=== PATIENT | female | born 1965 | race African-American/Black ===

== ENCOUNTER 2019-08-04 18:40 | Emergency (ER) | payer MEDICAID ==
[~2019-08-04] VITALS: Ht 172.7 cm; Wt 81.6 kg
[~2019-08-04 18:40] MED LIST: AMIT PO; BECL0.07 INH; CARI-277 PO; HYDR-4833 PO; LAMO200T2 PO; LORA2TAB10 PO; MONT10TA23 PO; OMEP20CA74 PO
[2019-08-04] MEDS ORDERED: SODIUM CHLORIDE 0.9% 1,000 ML IV ONE (18:44)
[2019-08-04 19:15] VITALS: BP 113/89
[2019-08-04] MEDS ORDERED: KETOROLAC TROMETH 30 MG/ML 1ML VIAL IV ONE (19:30)
[2019-08-04] MEDS ORDERED: KETOROLAC TROMETH 60MG/2ML VIAL IM ONE (19:30)
[2019-08-04 19:32] LABS: Basophils # (auto) 0.2 10 ^3/uL (0-0.2); Eosinophils # (auto) 0.1 10 ^3/uL (0-0.8); Eosinophils % (auto) 0.5 % (0.0-7.0); Hematocrit 42.9 % (36.0-46.0); Lymphocytes # (auto) 5.8 10 ^3/uL (0.4-5.4); Lymphocytes % (auto) 28.7 % (10.0-50.0); Mean Corpuscular Hemoglobin 27.5 pg (28.0-32.0); Mean Corpuscular Hgb Conc. 32.6 g/dL (32.0-36.0); Mean Corpuscular Volume 84.4 fL (80.0-100.0); Monocytes # (auto) 1.4 10 ^3/uL (0-1.3); Monocytes % (auto) 7.1 % (0.0-12.0); Neutrophils # (auto) 12.7 10 ^3/uL (1.6-8.6); Neutrophils % (auto) 62.7 % (37.0-80.0); Nucleated Red Blood Cells % 0.1 %; Platelet Count (auto) 385 10^3/uL (140-450); Red Blood Cells 5.08 10^6/uL (4.0-5.20); Red Cell Distribution Width 15.6 % (11.8-14.3); White Blood Cell 20.3 10^3/uL (4.4-10.8)
[2019-08-04 19:48] LABS: Albumin 3.7 g/dL (3.4-5.0); Anion Gap 8 (5-15); Calcium 9.2 mg/dL (8.5-10.1); Carbon Dioxide 27 mmol/L (21-32); Chloride 101 mmol/L (98-107); Glucose 97 mg/dL (74-106); Lipase 102 U/L (73-393); Sodium 136 mmol/L (136-145)
[2019-08-04 19:52] LABS: Alanine Aminotransferase 45 U/L (13-56); Alkaline Phosphatase 106 U/L (45-117); Aspartate Aminotransferase 69 U/L (15-37); Bilirubin, Total 0.7 mg/dL (0.2-1.0); GFR African American 74 mL/min; GFR Non-African American 61 mL/min; Total Protein 8.4 g/dL (6.4-8.2)
[2019-08-04] MEDS ORDERED: cefTRIAXone 1GM/50ML D5W 50 ML IV ONE (20:00)
[2019-08-04] MEDS ORDERED: metroNIDAZOLE 500MG/100ML 100 ML IV ONE (20:00)
[2019-08-04 20:09] LABS: Blood Urea Nitrogen 13 mg/dL (7-18)
[2019-08-04 20:10] LABS: BUN/Creatinine Ratio 12.9
--- NOTE | 2019-08-05 09:34 | NUR ---
assessment Per consult will need a place for treatment. Consult came in after hours and patient discharged prior to assessment. Addendum: 08/05/19 at 0935 by Jeanine Arango Amended: Links added.
== END 2019-08-04 20:06 | disposition home or self-care (01) ==
LOC: ER 18:41
DX: F41.9 Anxiety disorder, unspecified (principal); K52.9 Noninfective gastroenteritis and colitis, unspecified; K59.00 Constipation, unspecified; E86.0 Dehydration; D72.829 Elevated white blood cell count, unspecified; J45.909 Unspecified asthma, uncomplicated; E07.9 Disorder of thyroid, unspecified; F17.210 Nicotine dependence, cigarettes, uncomplicated
CPT/HCPCS: 36415; 71045; 74176; 80053; 83690; 84484; 85025; 96361; 96374; 99285; J1885; J7030

== ENCOUNTER 2019-08-17 16:45 | Inpatient (IN) | payer MEDICAID ==
[~2019-08-17] VITALS: Ht 170.2 cm; Wt 30.8 kg
[2019-08-17 18:15] LABS: Urine Bacteria NONE SEEN /hpf (None Seen); Urine Blood TRACE /uL (Negative); Urine Hyaline Cast MOD /lpf (0 - 2); Urine Mucus FEW (None Seen); Urine WBC 366 /hpf (0 - 5)
[2019-08-17 18:18] LABS: Amphetamine Screen, Urine NEGATIVE (NEGATIVE); Barbiturate Scree,Urine NEGATIVE (NEGATIVE); Benzodiazephine Screen, Urine NEGATIVE (NEGATIVE); Cocaine Screen, Urine NEGATIVE (NEGATIVE); Phencyclidine Screen, Urine NEGATIVE (NEGATIVE)
[2019-08-17 18:23] LABS: Acetaminophen < 2.0 ug/mL (10-30); Alanine Aminotransferase 30 U/L (13-56); Albumin 3.8 g/dL (3.4-5.0); Anion Gap 3 (5-15); Aspartate Aminotransferase 21 U/L (15-37); BUN/Creatinine Ratio 10.3; Basophils # (auto) 0.1 10 ^3/uL (0-0.2); Basophils % (auto) 0.7 % (0.0-2.0); Blood Alcohol < 3.0 mg/dL (0-5); Blood Urea Nitrogen 6 mg/dL (7-18); Calcium 9.8 mg/dL (8.5-10.1); Carbon Dioxide 29 mmol/L (21-32); Chloride 102 mmol/L (98-107); Eosinophils # (auto) 0.1 10 ^3/uL (0-0.8); Eosinophils % (auto) 0.8 % (0.0-7.0); GFR African American 140 mL/min; GFR Non-African American 116 mL/min; Glucose 98 mg/dL (74-106); Hematocrit 47.7 % (36.0-46.0); Hemoglobin 15.5 g/dL (12.2-16.2); Lymphocytes # (auto) 4.3 10 ^3/uL (0.4-5.4); Lymphocytes % (auto) 26.5 % (10.0-50.0); Mean Corpuscular Hemoglobin 27.6 pg (28.0-32.0); Mean Corpuscular Hgb Conc. 32.6 g/dL (32.0-36.0); Mean Corpuscular Volume 84.6 fL (80.0-100.0); Monocytes # (auto) 0.7 10 ^3/uL (0-1.3); Monocytes % (auto) 4.6 % (0.0-12.0); Neutrophils # (auto) 10.9 10 ^3/uL (1.6-8.6); Neutrophils % (auto) 67.4 % (37.0-80.0); Nucleated Red Blood Cells % 0.1 %; Platelet Count (auto) 369 10^3/uL (140-450); Potassium 3.1 mmol/L (3.5-5.1); Red Blood Cells 5.64 10^6/uL (4.0-5.20); Red Cell Distribution Width 15.7 % (11.8-14.3); Salicylate 9.8 mg/dL (2.8-20.0); Sodium 134 mmol/L (136-145); White Blood Cell 16.1 10^3/uL (4.4-10.8)
[2019-08-17 18:26] LABS: Alkaline Phosphatase 111 U/L (45-117); Bilirubin, Total 0.3 mg/dL (0.2-1.0); Total Protein 9.2 g/dL (6.4-8.2)
[2019-08-17 18:26] LABS: Cannabinoid Screen, Urine POSITIVE (NEGATIVE); Opiate Scree,Urine NEGATIVE (NEGATIVE)
[2019-08-17 18:42] LABS: Alcohol, Urine < 3.0 mg/dL (0-5)
[2019-08-17] MEDS ORDERED: POTASSIUM CHL 20MEQ/100ML 100 ML IV ONE (18:45)
[2019-08-17] MEDS ORDERED: cefTRIAXone 1GM/50ML D5W 50 ML IV ONE (18:45)
[2019-08-17] MEDS ORDERED: ACETAMINOPHEN 500 MG TAB PO PRN (19:30)
[2019-08-17] MEDS ORDERED: NITROGLYCERIN 0.4 MG SL TAB SL PRN (19:30)
[2019-08-17] MEDS ORDERED: MORPHINE SULF INJ 2 MG/ML SYRINGE 1ML IV PRN (19:30)
[2019-08-17] MEDS ORDERED: ALBUTEROL SULF 2.5 MG/0.5ML(0.5%) NEB SOLN NEB PRN (19:30)
[2019-08-17] MEDS ORDERED: ONDANSETRON HCL 4 MG/2 ML VIAL IV PRN (19:30)
[2019-08-17] MEDS ORDERED: IPRATROPIUM BROM 0.5 MG/2.5ML INH SOL NEB PRN (19:30)
[2019-08-17] MEDS: SOD CHL 0.9%/ KCL 20MEQ 1,000 ML IV SCH ×2 (20:26→22:51)
[2019-08-17 21:33] VITALS: BP 140/89
[2019-08-18] VITALS: BP 145/76
[2019-08-18 05:58] LABS: Basophils # (auto) 0.1 10 ^3/uL (0-0.2); Basophils % (auto) 0.8 % (0.0-2.0); Eosinophils # (auto) 0.2 10 ^3/uL (0-0.8); Hematocrit 41.2 % (36.0-46.0); Hemoglobin 13.2 g/dL (12.2-16.2); Lymphocytes # (auto) 5.5 10 ^3/uL (0.4-5.4); Lymphocytes % (auto) 44.7 % (10.0-50.0); Mean Corpuscular Hemoglobin 27.4 pg (28.0-32.0); Mean Corpuscular Hgb Conc. 32.1 g/dL (32.0-36.0); Mean Corpuscular Volume 85.5 fL (80.0-100.0); Monocytes # (auto) 0.9 10 ^3/uL (0-1.3); Monocytes % (auto) 7.7 % (0.0-12.0); Neutrophils # (auto) 5.5 10 ^3/uL (1.6-8.6); Neutrophils % (auto) 44.8 % (37.0-80.0); Nucleated Red Blood Cells % 0.2 %; Platelet Count (auto) 303 10^3/uL (140-450); Red Blood Cells 4.81 10^6/uL (4.0-5.20); Red Cell Distribution Width 15.6 % (11.8-14.3); White Blood Cell 12.2 10^3/uL (4.4-10.8)
[2019-08-18 06:17] LABS: Calcium 8.7 mg/dL (8.5-10.1); Potassium 3.6 mmol/L (3.5-5.1)
[2019-08-18 06:21] LABS: BUN/Creatinine Ratio 21.7
[2019-08-18 09:00] VITALS: BP 152/96
[2019-08-18] MEDS ORDERED: cefTRIAXone 1GM/50ML D5W 50 ML IV SCH (09:00)
[2019-08-18] MEDS ORDERED: FAMOTIDINE 20 MG TAB PO SCH (10:00)
[2019-08-18 13:00] VITALS: BP 151/80
[2019-08-18 15:12] VITALS: BP 145/76
[2019-08-18] MEDS: SOD CHL 0.9%/ KCL 20MEQ 1,000 ML IV SCH (15:30)
== END 2019-08-18 16:00 | disposition home or self-care (01) | DRG 817 ==
LOC: ER 16:45 → EDBD 16:45 → TELE 16:46 → TELE-CENTR 22:05
PROVIDERS: ADMIT Nurse Practitioner Acute Care; ATTEND Internal Medicine
DX: T42.8X2A Poisoning by antiparkinsonism drugs and other central muscle-tone depressants, intentional self-harm, initial encounter (principal); G92 Toxic encephalopathy; F11.20 Opioid dependence, uncomplicated; F20.9 Schizophrenia, unspecified; I11.0 Hypertensive heart disease with heart failure; I50.9 Heart failure, unspecified; T42.6X2A Poisoning by other antiepileptic and sedative-hypnotic drugs, intentional self-harm, initial encounter; N30.00 Acute cystitis without hematuria; E87.6 Hypokalemia; J44.9 Chronic obstructive pulmonary disease, unspecified; F17.210 Nicotine dependence, cigarettes, uncomplicated; F12.90 Cannabis use, unspecified, uncomplicated; D72.829 Elevated white blood cell count, unspecified; F31.9 Bipolar disorder, unspecified; Z88.1 Allergy status to other antibiotic agents; Z79.899 Other long term (current) drug therapy; Z79.51 Long term (current) use of inhaled steroids; Z83.3 Family history of diabetes mellitus; Y92.89 Other specified places as the place of occurrence of the external cause
CPT/HCPCS: 36415; 80048; 80053; 80307; 80320; 80329; 81001; 83735; 85025; 87086; 93005; G0378; J0696

== ENCOUNTER 2019-12-05 02:00 | Emergency (ER) | payer MEDICAID ==
[~2019-12-05] VITALS: Ht 170.2 cm; Wt 45.4 kg
[~2019-12-05 02:00] MED LIST changes: -LORA2TAB10 PO; +LORA2TAB12 PO
[2019-12-05 03:26] LABS: Basophils # (auto) 0.1 10 ^3/uL (0-0.2); Basophils % (auto) 0.6 % (0.0-2.0); Eosinophils # (auto) 0.1 10 ^3/uL (0-0.8); Eosinophils % (auto) 0.9 % (0.0-7.0); Hematocrit 40.8 % (36.0-46.0); Hemoglobin 13.5 g/dL (12.2-16.2); Lymphocytes # (auto) 2.8 10 ^3/uL (0.4-5.4); Lymphocytes % (auto) 27.4 % (10.0-50.0); Mean Corpuscular Hemoglobin 27.5 pg (28.0-32.0); Mean Corpuscular Hgb Conc. 33.1 g/dL (32.0-36.0); Mean Corpuscular Volume 83.1 fL (80.0-100.0); Monocytes # (auto) 0.8 10 ^3/uL (0-1.3); Monocytes % (auto) 7.9 % (0.0-12.0); Neutrophils # (auto) 6.5 10 ^3/uL (1.6-8.6); Neutrophils % (auto) 63.2 % (37.0-80.0); Platelet Count (auto) 397 10^3/uL (140-450); Red Blood Cells 4.91 10^6/uL (4.0-5.20); Red Cell Distribution Width 14.5 % (11.8-14.3); White Blood Cell 10.2 10^3/uL (4.4-10.8)
[2019-12-05 03:29] LABS: Urine Bacteria NONE SEEN /hpf (None Seen); Urine Blood Negative /uL (Negative); Urine Specific Gravity 1.003 (1.001-1.035); Urine WBC 2 /hpf (0 - 5)
[2019-12-05 03:42] LABS: Albumin 3.6 g/dL (3.4-5.0); Anion Gap 5 (5-15); Blood Urea Nitrogen 5 mg/dL (7-18); Calcium 9.1 mg/dL (8.5-10.1); Carbon Dioxide 28 mmol/L (21-32); Chloride 102 mmol/L (98-107); Glucose 101 mg/dL (74-106); Potassium 3.3 mmol/L (3.5-5.1); Sodium 135 mmol/L (136-145)
[2019-12-05 03:48] LABS: Alanine Aminotransferase 29 U/L (13-56); Alkaline Phosphatase 109 U/L (45-117); Aspartate Aminotransferase 23 U/L (15-37); BUN/Creatinine Ratio 8.8; Bilirubin, Total 0.2 mg/dL (0.2-1.0); GFR African American 143 mL/min; GFR Non-African American 118 mL/min; Total Protein 8.2 g/dL (6.4-8.2)
[2019-12-05 04:21] VITALS: BP 93/52
== END 2019-12-05 05:39 | disposition home or self-care (01) ==
LOC: ER 02:00 → EDBD 02:00 → ER 05:39
DX: J98.01 Acute bronchospasm (principal); J44.9 Chronic obstructive pulmonary disease, unspecified; N39.0 Urinary tract infection, site not specified; Z20.828 Contact with and (suspected) exposure to other viral communicable diseases; E78.5 Hyperlipidemia, unspecified
CPT/HCPCS: 36415; 71045; 80053; 81001; 84484; 85025; 87426; 93005; 99285; C9803; U0003

== ENCOUNTER 2019-12-29 21:45 | Emergency (ER) | payer MEDICAID ==
[~2019-12-29] VITALS: Ht 175.3 cm; Wt 72.6 kg
[2019-12-29 23:10] LABS: Urine Bacteria FEW /hpf (None Seen); Urine Blood Negative /uL (Negative); Urine Specific Gravity 1.003 (1.001-1.035); Urine WBC 1 /hpf (0 - 5)
[2019-12-29 23:23] LABS: Alcohol, Urine < 3.0 mg/dL (0-10); Amphetamine Screen, Urine NEGATIVE (NEGATIVE); Barbiturate Scree,Urine NEGATIVE (NEGATIVE); Benzodiazephine Screen, Urine NEGATIVE (NEGATIVE); Cannabinoid Screen, Urine POSITIVE (NEGATIVE); Cocaine Screen, Urine NEGATIVE (NEGATIVE); Opiate Scree,Urine NEGATIVE (NEGATIVE); Phencyclidine Screen, Urine NEGATIVE (NEGATIVE)
[2019-12-29] MEDS ORDERED: risperiDONE 1 MG TAB PO ONE ×2 (23:30→23:45)
[2019-12-30 00:12] VITALS: BP 132/72
== END 2019-12-30 01:10 | disposition home or self-care (01) ==
LOC: EDBD 21:45 → EDUNIT# 21:53 → EDBD 21:53 → ER 21:53
DX: F41.9 Anxiety disorder, unspecified (principal); F20.9 Schizophrenia, unspecified; J44.9 Chronic obstructive pulmonary disease, unspecified
CPT/HCPCS: 80307; 81001; 93005

== ENCOUNTER 2020-01-17 20:08 | Emergency (ER) | payer MEDICAID ==
[~2020-01-17] VITALS: Ht 175.3 cm; Wt 72.6 kg
[2020-01-17 22:26] LABS: Basophils # (auto) 0.1 10 ^3/uL (0-0.2); Basophils % (auto) 0.5 % (0.0-2.0); Eosinophils # (auto) 0.2 10 ^3/uL (0-0.8); Eosinophils % (auto) 1.6 % (0.0-7.0); Hematocrit 44.2 % (36.0-46.0); Hemoglobin 14.5 g/dL (12.2-16.2); Lymphocytes # (auto) 5.3 10 ^3/uL (0.4-5.4); Lymphocytes % (auto) 38.4 % (10.0-50.0); Mean Corpuscular Hemoglobin 27.4 pg (28.0-32.0); Mean Corpuscular Hgb Conc. 32.9 g/dL (32.0-36.0); Mean Corpuscular Volume 83.4 fL (80.0-100.0); Monocytes # (auto) 0.9 10 ^3/uL (0-1.3); Monocytes % (auto) 6.6 % (0.0-12.0); Neutrophils # (auto) 7.3 10 ^3/uL (1.6-8.6); Neutrophils % (auto) 52.9 % (37.0-80.0); Nucleated Red Blood Cells % 0.1 %; Platelet Count (auto) 343 10^3/uL (140-450); Red Cell Distribution Width 15.3 % (11.8-14.3); White Blood Cell 13.9 10^3/uL (4.4-10.8)
[2020-01-17 22:38] LABS: Albumin 3.6 g/dL (3.4-5.0); Anion Gap 7 (5-15); Blood Urea Nitrogen 15 mg/dL (7-18); Calcium 9.6 mg/dL (8.5-10.1); Carbon Dioxide 27 mmol/L (21-32); Chloride 104 mmol/L (98-107); Glucose 88 mg/dL (74-106); Potassium 3.4 mmol/L (3.5-5.1); Sodium 138 mmol/L (136-145)
[2020-01-17 22:45] LABS: Alanine Aminotransferase 27 U/L (13-56); Alkaline Phosphatase 105 U/L (45-117); Aspartate Aminotransferase 21 U/L (15-37); BUN/Creatinine Ratio 18.5; Bilirubin, Total 0.3 mg/dL (0.2-1.0); GFR African American 95 mL/min; GFR Non-African American 79 mL/min; Total Protein 7.5 g/dL (6.4-8.2)
[2020-01-18 00:42] VITALS: BP 120/77
[2020-01-18 01:39] LABS: Urine Bacteria FEW /hpf (None Seen); Urine Blood Negative /uL (Negative); Urine Mucus FEW (None Seen); Urine Specific Gravity 1.013 (1.001-1.035); Urine WBC 5 /hpf (0 - 5)
[2020-01-18 01:44] LABS: Alcohol, Urine < 3.0 mg/dL (0-10); Amphetamine Screen, Urine POSITIVE (NEGATIVE); Barbiturate Scree,Urine NEGATIVE (NEGATIVE); Benzodiazephine Screen, Urine NEGATIVE (NEGATIVE); Cannabinoid Screen, Urine POSITIVE (NEGATIVE); Cocaine Screen, Urine NEGATIVE (NEGATIVE); Opiate Scree,Urine NEGATIVE (NEGATIVE); Phencyclidine Screen, Urine NEGATIVE (NEGATIVE)
== END 2020-01-18 02:40 | disposition left against medical advice (07) ==
LOC: EDBD 20:08 → ER 20:08
DX: M79.10 Myalgia, unspecified site (principal); Z53.21 Procedure and treatment not carried out due to patient leaving prior to being seen by health care provider
CPT/HCPCS: 36415; 80053; 80307; 81001; 84484; 85025; 93005

== ENCOUNTER 2020-03-05 04:58 | Emergency (ER) | payer MEDICAID ==
[~2020-03-05] VITALS: Ht 167.6 cm; Wt 90.7 kg
[2020-03-05 06:05] VITALS: BP 140/100
[2020-03-05] MEDS ORDERED: KETOROLAC TROMETH 60MG/2ML VIAL IM ONE (11:45)
== END 2020-03-05 12:23 | disposition home or self-care (01) ==
LOC: EDBD 04:58 → ER 04:58
DX: G89.29 Other chronic pain (principal); J44.9 Chronic obstructive pulmonary disease, unspecified; F12.10 Cannabis abuse, uncomplicated
CPT/HCPCS: 96372; 99283; J1885

== ENCOUNTER 2020-03-05 19:48 | Emergency (ER) | payer MEDICAID | END 2020-03-05 21:23 | disposition left against medical advice (07) | LOC: ER 19:52 | DX: R45.851 Suicidal ideations (principal); J44.9 Chronic obstructive pulmonary disease, unspecified; F41.9 Anxiety disorder, unspecified; F20.9 Schizophrenia, unspecified; Z59.0 Homelessness; Z88.1 Allergy status to other antibiotic agents ==

== ENCOUNTER 2020-04-26 10:54 | Emergency (ER) | payer MEDICAID ==
[~2020-04-26] VITALS: Ht 177.8 cm; Wt 86.2 kg
[2020-04-26 17:28] LABS: Basophils # (auto) 0.1 10 ^3/uL (0-0.2); Eosinophils # (auto) 0.3 10 ^3/uL (0-0.8); Eosinophils % (auto) 2.9 % (0.0-7.0); Hematocrit 39.2 % (36.0-46.0); Hemoglobin 12.9 g/dL (12.2-16.2); Lymphocytes # (auto) 3.7 10 ^3/uL (0.4-5.4); Lymphocytes % (auto) 36.1 % (10.0-50.0); Mean Corpuscular Hemoglobin 27.8 pg (28.0-32.0); Mean Corpuscular Volume 84.4 fL (80.0-100.0); Monocytes # (auto) 0.8 10 ^3/uL (0-1.3); Monocytes % (auto) 7.7 % (0.0-12.0); Neutrophils # (auto) 5.3 10 ^3/uL (1.6-8.6); Neutrophils % (auto) 52.3 % (37.0-80.0); Nucleated Red Blood Cells % 0.1 %; Platelet Count (auto) 338 10^3/uL (140-450); Red Blood Cells 4.64 10^6/uL (4.0-5.20); Red Cell Distribution Width 14.3 % (11.8-14.3); White Blood Cell 10.2 10^3/uL (4.4-10.8)
[2020-04-26 17:50] LABS: Calcium 8.8 mg/dL (8.5-10.1); Potassium 3.4 mmol/L (3.5-5.1)
[2020-04-26 17:52] LABS: Acetaminophen < 2.0 ug/mL (10-30); Salicylate 2.7 mg/dL (2.8-20.0)
[2020-04-26 17:53] LABS: Albumin 3.2 g/dL (3.4-5.0); BUN/Creatinine Ratio 8.7
[2020-04-26 17:56] LABS: Bilirubin, Total 0.2 mg/dL (0.2-1.0); Total Protein 6.8 g/dL (6.4-8.2)
[2020-04-26 18:00] LABS: Urine Bacteria NONE SEEN /hpf (None Seen); Urine Blood Negative /uL (Negative); Urine Specific Gravity 1.005 (1.001-1.035); Urine WBC 51 /hpf (0 - 5)
[2020-04-26 18:16] LABS: Amphetamine Screen, Urine NEGATIVE (NEGATIVE); Barbiturate Scree,Urine NEGATIVE (NEGATIVE); Benzodiazephine Screen, Urine NEGATIVE (NEGATIVE); Cannabinoid Screen, Urine POSITIVE (NEGATIVE); Cocaine Screen, Urine NEGATIVE (NEGATIVE); Opiate Scree,Urine NEGATIVE (NEGATIVE); Phencyclidine Screen, Urine NEGATIVE (NEGATIVE)
[2020-04-27] MEDS ORDERED: ACETAMINOPHEN 325 MG TAB PO ONE (15:15)
[2020-04-27] MEDS ORDERED: LIDOCAINE 2%HCL (LOCAL ANESTH.) INJ 10ml MDV IJ ONE (15:15)
[2020-04-27] MEDS ORDERED: cefTRIAXone SOD 1,000 MG VL IM ONE (15:15)
[2020-04-27 16:22] VITALS: BP 128/90
== END 2020-04-27 16:41 ==
LOC: EDBD 10:54 → ER 10:54
DX: S63.502A Unspecified sprain of left wrist, initial encounter (principal); S93.492A Sprain of other ligament of left ankle, initial encounter; F23 Brief psychotic disorder; F19.10 Other psychoactive substance abuse, uncomplicated; Z20.822 Contact with and (suspected) exposure to COVID-19; X58.XXXA Exposure to other specified factors, initial encounter; Y93.89 Activity, other specified; Y92.89 Other specified places as the place of occurrence of the external cause; Y99.8 Other external cause status
CPT/HCPCS: 36415; 73100; 73600; 80053; 80307; 80320; 80329; 81001; 85025; 87426; 96372; 99285; J0696; J2001

== ENCOUNTER 2020-07-01 20:25 | Emergency (ER) | payer MEDICAID, OTHER ==
[~2020-07-01] VITALS: Ht 172.7 cm; Wt 69.4 kg
[2020-07-01 21:15] VITALS: BP 139/90
[2020-07-01 21:59] LABS: Urine Bacteria NONE SEEN /hpf (None Seen); Urine Blood Negative /uL (Negative); Urine Specific Gravity 1.004 (1.001-1.035); Urine WBC 15 /hpf (0 - 5)
== END 2020-07-01 23:10 | disposition home or self-care (01) ==
LOC: ER 20:25 → EDUNIT# 20:25 → ER 23:10
DX: N30.01 Acute cystitis with hematuria (principal); F41.9 Anxiety disorder, unspecified; F20.9 Schizophrenia, unspecified; F17.200 Nicotine dependence, unspecified, uncomplicated; F15.10 Other stimulant abuse, uncomplicated; Z79.899 Other long term (current) drug therapy; Z88.1 Allergy status to other antibiotic agents; Z88.8 Allergy status to other drugs, medicaments and biological substances
CPT/HCPCS: 81001

== ENCOUNTER 2020-07-03 05:09 | Emergency (ER) | payer MEDICAID ==
[~2020-07-03] VITALS: Ht 172.7 cm; Wt 68.9 kg
[~2020-07-03 05:09] MED LIST changes: -AMIT PO; +AMIT10TA8 PO
[2020-07-03 05:11] VITALS: BP 149/113
== END 2020-07-03 07:50 ==
LOC: ER 05:09 → EDBD 05:09 → ER 07:50
DX: F41.9 Anxiety disorder, unspecified (principal); F15.10 Other stimulant abuse, uncomplicated; Z88.6 Allergy status to analgesic agent

== ENCOUNTER 2020-07-18 22:09 | Emergency (ER) | payer MEDICAID ==
[~2020-07-18] VITALS: Ht 172.7 cm; Wt 68.9 kg
[2020-07-18 23:30] LABS: Basophils # (auto) 0.1 10 ^3/uL (0-0.2); Basophils % (auto) 0.6 % (0.0-2.0); Eosinophils # (auto) 0.3 10 ^3/uL (0-0.8); Eosinophils % (auto) 1.7 % (0.0-7.0); Hematocrit 45.8 % (36.0-46.0); Hemoglobin 14.8 g/dL (12.2-16.2); Lymphocytes # (auto) 6.7 10 ^3/uL (0.4-5.4); Lymphocytes % (auto) 41.4 % (10.0-50.0); Mean Corpuscular Hemoglobin 27.7 pg (28.0-32.0); Mean Corpuscular Hgb Conc. 32.4 g/dL (32.0-36.0); Mean Corpuscular Volume 85.6 fL (80.0-100.0); Monocytes # (auto) 0.9 10 ^3/uL (0-1.3); Monocytes % (auto) 5.7 % (0.0-12.0); Neutrophils # (auto) 8.3 10 ^3/uL (1.6-8.6); Neutrophils % (auto) 50.6 % (37.0-80.0); Nucleated Red Blood Cells % 0.1 %; Platelet Count (auto) 370 10^3/uL (140-450); Red Blood Cells 5.35 10^6/uL (4.0-5.20); Red Cell Distribution Width 14.2 % (11.8-14.3); White Blood Cell 16.3 10^3/uL (4.4-10.8)
[2020-07-18 23:49] LABS: Albumin 3.4 g/dL (3.4-5.0); Anion Gap 8 (5-15); Carbon Dioxide 25 mmol/L (21-32); Chloride 102 mmol/L (98-107); Glucose 119 mg/dL (74-106); Potassium 3.7 mmol/L (3.5-5.1); Sodium 135 mmol/L (136-145)
[2020-07-18 23:57] LABS: Acetaminophen < 2.0 ug/mL (10-30); Salicylate 2.3 mg/dL (2.8-20.0)
[2020-07-19] LABS: Alanine Aminotransferase 29 U/L (13-56); Alkaline Phosphatase 119 U/L (45-117); Aspartate Aminotransferase 27 U/L (15-37); BUN/Creatinine Ratio 15.2; Bilirubin, Total 0.2 mg/dL (0.2-1.0); Blood Alcohol < 3.0 mg/dL (0-5); Blood Urea Nitrogen 10 mg/dL (7-18); GFR African American 120 mL/min; GFR Non-African American 100 mL/min; Total Protein 7.6 g/dL (6.4-8.2)
[2020-07-19 03:31] LABS: Urine Bacteria NONE SEEN /hpf (None Seen); Urine Blood Negative /uL (Negative); Urine Specific Gravity 1.005 (1.001-1.035); Urine WBC 14 /hpf (0 - 5)
[2020-07-19 03:43] LABS: Amphetamine Screen, Urine NEGATIVE (NEGATIVE); Barbiturate Scree,Urine NEGATIVE (NEGATIVE); Benzodiazephine Screen, Urine NEGATIVE (NEGATIVE); Cannabinoid Screen, Urine POSITIVE (NEGATIVE); Cocaine Screen, Urine NEGATIVE (NEGATIVE); Phencyclidine Screen, Urine NEGATIVE (NEGATIVE)
[2020-07-19 03:50] LABS: Opiate Scree,Urine NEGATIVE (NEGATIVE)
[2020-07-19] MEDS ORDERED: cefTRIAXone 1GM/50ML D5W 50 ML IV ONE (09:00)
[2020-07-19] MEDS ORDERED: SODIUM CHLORIDE 0.9% 1,000 ML IV ONE (09:00)
[2020-07-19] MEDS: diphenhdrAMINE HCL 50 MG/1 ML VL IV ONE ×2 (09:11→09:27)
[2020-07-19 12:45] VITALS: BP 143/93
== END 2020-07-19 15:40 | disposition left against medical advice (07) ==
LOC: ER 22:10
DX: F20.9 Schizophrenia, unspecified (principal); N39.0 Urinary tract infection, site not specified; F31.9 Bipolar disorder, unspecified; J44.9 Chronic obstructive pulmonary disease, unspecified; F17.210 Nicotine dependence, cigarettes, uncomplicated; F12.10 Cannabis abuse, uncomplicated; G89.4 Chronic pain syndrome; Z53.29 Procedure and treatment not carried out because of patient's decision for other reasons; Z20.822 Contact with and (suspected) exposure to COVID-19
CPT/HCPCS: 36415; 71046; 80053; 80307; 80320; 80329; 81001; 85025; 87426; 93005; 96365; 99285; J0696; J7030

== ENCOUNTER 2020-09-22 16:26 | Emergency (ER) | payer MEDICAID ==
[~2020-09-22] VITALS: Ht 172.7 cm; Wt 79.4 kg
[2020-09-22] MEDS ORDERED: cefTRIAXone 1GM/50ML D5W 50 ML IV ONE (17:00)
[2020-09-22 17:18] LABS: Basophils # (auto) 0.1 10 ^3/uL (0-0.2); Basophils % (auto) 0.6 % (0.0-2.0); Eosinophils # (auto) 0 10 ^3/uL (0-0.8); Eosinophils % (auto) 0.3 % (0.0-7.0); Hematocrit 36.2 % (36.0-46.0); Hemoglobin 12.3 g/dL (12.2-16.2); Lymphocytes # (auto) 2.4 10 ^3/uL (0.4-5.4); Lymphocytes % (auto) 22.1 % (10.0-50.0); Mean Corpuscular Hemoglobin 28.4 pg (28.0-32.0); Mean Corpuscular Volume 83.3 fL (80.0-100.0); Monocytes # (auto) 0.7 10 ^3/uL (0-1.3); Monocytes % (auto) 6.5 % (0.0-12.0); Neutrophils # (auto) 7.7 10 ^3/uL (1.6-8.6); Neutrophils % (auto) 70.5 % (37.0-80.0); Red Blood Cells 4.34 10^6/uL (4.0-5.20); Red Cell Distribution Width 14.2 % (11.8-14.3); White Blood Cell 10.9 10^3/uL (4.4-10.8)
[2020-09-22 17:35] LABS: Alanine Aminotransferase 22 U/L (13-56); Albumin 3.5 g/dL (3.4-5.0); Anion Gap 8 (5-15); Aspartate Aminotransferase 17 U/L (15-37); BUN/Creatinine Ratio 26.9; Blood Urea Nitrogen 14 mg/dL (7-18); Carbon Dioxide 24 mmol/L (21-32); Chloride 95 mmol/L (98-107); GFR African American 159 mL/min; GFR Non-African American 131 mL/min; Glucose 80 mg/dL (74-106); Magnesium 1.7 mg/dL (1.6-2.6); Potassium 4.3 mmol/L (3.5-5.1); Sodium 127 mmol/L (136-145)
[2020-09-22 17:40] LABS: Alkaline Phosphatase 92 U/L (45-117); Bilirubin, Total 0.2 mg/dL (0.2-1.0); Total Protein 7.2 g/dL (6.4-8.2)
[2020-09-22 17:54] LABS: Alcohol, Urine < 3.0 mg/dL (0-10); Amphetamine Screen, Urine NEGATIVE (NEGATIVE); Barbiturate Scree,Urine NEGATIVE (NEGATIVE); Benzodiazephine Screen, Urine NEGATIVE (NEGATIVE); Cannabinoid Screen, Urine POSITIVE (NEGATIVE); Cocaine Screen, Urine NEGATIVE (NEGATIVE); Opiate Scree,Urine NEGATIVE (NEGATIVE); Phencyclidine Screen, Urine NEGATIVE (NEGATIVE)
[2020-09-22 18:00] LABS: Urine Blood Negative /uL (Negative); Urine Mucus FEW (None Seen); Urine WBC 4 /hpf (0 - 5)
[2020-09-22 18:04] LABS: Urine Bacteria None Seen /hpf (None Seen)
[2020-09-22 18:55] VITALS: BP 95/53
== END 2020-09-22 19:29 | disposition home or self-care (01) ==
LOC: EDBD 16:26 → MERGE 16:26 → ER 16:26
DX: J44.1 Chronic obstructive pulmonary disease with (acute) exacerbation (principal); N39.0 Urinary tract infection, site not specified; F12.10 Cannabis abuse, uncomplicated; F17.210 Nicotine dependence, cigarettes, uncomplicated; F41.9 Anxiety disorder, unspecified; E78.5 Hyperlipidemia, unspecified; Z98.890 Other specified postprocedural states; Z93.0 Tracheostomy status
CPT/HCPCS: 36415; 36600; 71045; 80053; 80307; 81001; 82805; 83735; 84484; 85025; 85049; 93005; 96365; 99285; J0696

== ENCOUNTER 2020-11-19 13:40 | Emergency (ER) | payer MEDICAID ==
[~2020-11-19] VITALS: Ht 172.7 cm; Wt 68.0 kg
[2020-11-19] MEDS ORDERED: HYDROcodone-ACET 5/325MG TAB PO ONE (13:45)
[2020-11-19 15:50] VITALS: BP 110/78
== END 2020-11-19 17:30 | disposition left against medical advice (07) ==
LOC: MERGE 13:40 → EDBD 13:40 → ER 13:40
DX: G89.4 Chronic pain syndrome (principal); M25.551 Pain in right hip; M25.561 Pain in right knee; F41.9 Anxiety disorder, unspecified; J44.9 Chronic obstructive pulmonary disease, unspecified; E78.5 Hyperlipidemia, unspecified; F31.9 Bipolar disorder, unspecified; F17.210 Nicotine dependence, cigarettes, uncomplicated; Z88.6 Allergy status to analgesic agent; Z87.440 Personal history of urinary (tract) infections

== ENCOUNTER 2021-02-12 13:38 | Emergency (ER) | payer MEDICAID ==
[~2021-02-12] VITALS: Ht 172.7 cm; Wt 79.4 kg
[2021-02-12 13:43] VITALS: BP 148/82
[2021-02-12] MEDS ORDERED: traMADol HCL 50 MG TAB PO ONE (13:45)
[2021-02-12] MEDS ORDERED: ONDANSETRON ODT 4 MG TAB PO ONE (13:45)
== END 2021-02-12 14:55 | disposition home or self-care (01) ==
LOC: ER 13:38 → EDBD 13:38 → ER 14:55
DX: F41.8 Other specified anxiety disorders (principal); F32.9 Major depressive disorder, single episode, unspecified; G89.4 Chronic pain syndrome; M54.9 Dorsalgia, unspecified; J44.9 Chronic obstructive pulmonary disease, unspecified; E78.5 Hyperlipidemia, unspecified; F17.210 Nicotine dependence, cigarettes, uncomplicated; Z79.899 Other long term (current) drug therapy; Z88.1 Allergy status to other antibiotic agents; Z88.8 Allergy status to other drugs, medicaments and biological substances
CPT/HCPCS: 93005; 99283; Q0162

== ENCOUNTER 2022-02-12 10:21 | Emergency (ER) | payer MEDICAID ==
[~2022-02-12] VITALS: Ht 172.7 cm; Wt 78.5 kg
[2022-02-12 12:22] VITALS: BP 126/71
[2022-02-12] MEDS ORDERED: KETOROLAC TROMETH 30 MG/ML 1ML VIAL IM ONE (13:00)
[2022-02-12] MEDS ORDERED: methylPREDNISolone SOD SUCC 125 MG/2 ML VL IM ONE (13:00)
[2022-02-12] MEDS ORDERED: DICL75TA2 PO (13:38)
== END 2022-02-12 13:38 | disposition home or self-care (01) ==
LOC: ER 10:21
DX: G89.29 Other chronic pain (principal); M19.90 Unspecified osteoarthritis, unspecified site; J44.9 Chronic obstructive pulmonary disease, unspecified; F17.210 Nicotine dependence, cigarettes, uncomplicated; Z88.1 Allergy status to other antibiotic agents; Z88.8 Allergy status to other drugs, medicaments and biological substances; Z79.899 Other long term (current) drug therapy
CPT/HCPCS: 73030; 96372; 99284; J1885; J2930

== ENCOUNTER 2023-07-26 13:42 | Emergency (ER) | payer MEDICAID ==
[~2023-07-26] VITALS: Ht 172.7 cm; Wt 91.4 kg
[~2023-07-26 13:42] MED LIST changes: +AMIT-400 PO; -AMIT10TA8 PO; +DICL75TA2 PO; +LORA-1105 PO; -LORA2TAB12 PO
[2023-07-26 14:09] VITALS: BP 104/68; PULSE 76; RESP 16; TEMP 98.4; O2SAT 95
[2023-07-26 14:13] LABS: Urine Bacteria None Seen /hpf (None Seen)
[2023-07-26 14:29] LABS: Urine Blood 1+ /uL (Negative); Urine Budding Yeast MODERATE /hpf (None Seen); Urine Clarity Turbid (Clear); Urine Color Yellow (Yellow); Urine Protein, UAD TRACE (Negative); Urine Specific Gravity 1.021 (1.001-1.035); Urine Urobilinogen Normal (Negative); Urine WBC 509 /hpf (0 - 5); Urine pH 6.5 (5.0-9.0)
[2023-07-26] MEDS ORDERED: PHEN-922 PO (14:38)
[2023-07-26] MEDS ORDERED: BACDST PO (14:38)
[2023-07-26] MEDS: cefTRIAXone SOD 1,000 MG VL IM ONE (14:41)
[2023-07-26] MEDS: PHENAZOPYRIDINE HCL 100 MG TAB PO ONE (14:41)
== END 2023-07-26 14:48 | disposition home or self-care (01) ==
LOC: ER 13:42
DX: N39.0 Urinary tract infection, site not specified (principal); J44.9 Chronic obstructive pulmonary disease, unspecified; E78.5 Hyperlipidemia, unspecified; F17.210 Nicotine dependence, cigarettes, uncomplicated; F12.10 Cannabis abuse, uncomplicated
CPT/HCPCS: 81001; 96372; 99283; J0696

== ENCOUNTER 2023-10-03 10:31 | Emergency (ER) | payer MEDICAID ==
[~2023-10-03] VITALS: Ht 172.7 cm; Wt 89.5 kg
[~2023-10-03 10:31] MED LIST changes: +BACDST PO; +PHEN-922 PO
[2023-10-03 11:26] LABS: Urine Bacteria None Seen /hpf (None Seen)
[2023-10-03 11:41] LABS: Urine Blood TRACE /uL (Negative); Urine Clarity Turbid (Clear); Urine Color STRAW (Yellow); Urine Mucus FEW (None Seen); Urine Protein, UAD TRACE (Negative); Urine Specific Gravity 1.013 (1.001-1.035); Urine Urobilinogen Normal (Negative); Urine WBC 553 /hpf (0 - 5); Urine WBC Clumps PRESENT /hpf (None Seen); Urine pH 7.5 (5.0-9.0)
[2023-10-03 12:18] VITALS: BP 111/64; PULSE 88; RESP 18; TEMP 98.1; O2SAT 94
[2023-10-03] MEDS: cefTRIAXone SOD 1,000 MG VL IM ONE (12:52)
== END 2023-10-03 12:57 | disposition home or self-care (01) ==
LOC: ER 10:31
DX: N39.0 Urinary tract infection, site not specified (principal); J44.9 Chronic obstructive pulmonary disease, unspecified; E78.5 Hyperlipidemia, unspecified; F17.210 Nicotine dependence, cigarettes, uncomplicated; F12.10 Cannabis abuse, uncomplicated; Z88.1 Allergy status to other antibiotic agents
CPT/HCPCS: 81001; 96372; 99283; J0696